=== PATIENT | male | born 1985 | race Caucasian/White ===

== ENCOUNTER 2024-01-17 15:58 | Emergency (ER) | payer OTHER, SELFPAY ==
[2024-01-17 16:07] VITALS: BP 115/80; PULSE 90; RESP 18; TEMP 36.5; O2SAT 98; BMI 32.8
--- NOTE | 2024-01-17 16:17 | CRLHL7_ITS ---
For Patients: As a result of the Century Cures Act, medical imaging exams and procedure reports are released immediately into your electronic medical record. You may view this report before your referring provider. If you have questions, please contact your health care provider. INDICATION: Calf pain. TECHNIQUE: Ultrasound venous duplex lower right extremity. Compression venous exam was performed using rowan-scale, color Doppler, and spectral Doppler analysis. COMPARISON: None. FINDINGS: Patent right common femoral vein, superficial femoral vein, popliteal vein, and visualized calf veins. IMPRESSION: No deep venous thrombosis identified in the right lower extremity. Dictated by Ricki Yancey MD @ 01/17/2024 6:44:49 PM (Electronically Signed)
--- NOTE | 2024-01-17 16:18 | ED_ITS ---
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 He was awakened in the middle the night with a severe cramp in his calf, he jumped out of bed, stretched out in in improved but has not gone. Continues to have localized pain in the calf. He talked to his oncologist who recommended that he be seen to rule out blood clot based on his past medical history and medications. No family history of DVT or PE, no personal history of DVT or PE. He does not smoke. No other pertinent medical history. Related Data Home Medications ?Medication ?Instructions ?Recorded ?Confirmed Fish Oil 01/17/24 allopurinol 01/17/24 aspirin 01/17/24 imatinib 01/17/24 omeprazole 01/17/24 rosuvastatin 01/17/24 Allergies Allergy/AdvReac Type Severity Reaction Status Date / Time No Known Drug Allergies Allergy Verified 01/17/24 16:10 [facility] Social History Smoking Status: Unknown if ever smoked Exam Narrative: Exam Narrative: Vital signs reviewed In general, alert, well-appearing male. Breathing easily. Extremities: The right calf is normal in appearance. There is no erythema, warmth, there is a focal area of tenderness in the mid calf. No edema. No rash. Const: Vital Signs, click to edit/add: Vital Signs - 24 hr 01/17/24 16:07 Temperature 97.7 F Pulse Rate [Pulse Oximeter] 90 Respiratory Rate 18 Blood Pressure [Ri ght Upper Arm] 115/80 Pulse Oximetry 98 Oxygen Delivery Me thod Room Air Documenting provider has reviewed patient's vital signs: yes Course Course ED Course: Venous Doppler of right leg was obtained. Radiology reads this as follows:FINDINGS: Patent right common femoral vein, superficial femoral vein, popliteal vein, and visualized calf veins. IMPRESSION: No deep venous thrombosis identified in the right lower extremity. Reviewed this with the patient and his girlfriend. Overall, story sounds more suggestive of a muscle spasm, no evidence of DVT on ultrasound. I think this can be treated expectantly, ibuprofen and/or Tylenol, ice, anticipate gradual improvement. See primary care if not improving as expected. Return any time for acute worsening, severe pain, increased swelling, fevers etcetera. Vital Signs Vital signs: Initial Vital Signs Temperature 97.7 F 01/17/24 16:07 Temperature Source Temporal Artery Scan 01/17/24 16:07 Pulse Rate 90 01/17/24 16:07 Respiratory Rate 18 01/17/24 16:07 Blood Pressure 115/80 01/17/24 16:07 Blood Pressure Mean 91 01/17/24 16:07 Blood Pressure Position Sitting 01/17/24 16:07 Pulse Oximetry 98 01/17/24 16:07 Oxygen Delivery Method Room Air 01/17/24 16:07 Vital Signs Temperature 97.7 F 01/17/24 16:07 Pulse Rate 90 01/17/24 16:07 Respiratory Rate 18 01/17/24 16:07 Blood Pressure 115/80 01/17/24 16:07 Pulse Oximetry 98 01/17/24 16:07 Oxygen Delivery Method Room Air 01/17/24 16:07 Temperature 97.7 F 01/17/24 16:07 Pulse Rate 90 01/17/24 16:07 Respiratory Rate 18 01/17/24 16:07 Blood Pressure 115/80 01/17/24 16:07 Pulse Oximetry 98 01/17/24 16:07 Oxygen Delivery Method Room Air 01/17/24 16:07 Discharge Plan Discharge Clinical Impression: Muscle spasm of right calf Patient Disposition: Home, Self-Care Condition: Stable Additional Instructions: Ibuprofen and/or Tylenol, ice as needed. Return for worsening or severe pain, redness, swelling, or other significant changes. Discuss further with your oncology team as needed. Prescriptions: No Action imatinib allopurinol omeprazole aspirin Fish Oil rosuvastatin Follow Up/Referrals: Syed Young MD [Primary Care Provider] - Discharge Comment: Pt verbally d/c'd by Dr. Hurtado @ [phone].
== END 2024-01-17 17:00 | disposition home or self-care (01) ==
LOC: ED 16:28
PROVIDERS: Emergency Provider Emergency Medicine; PCP Family Medicine
DX: M62.838 Other muscle spasm (principal)
CPT/HCPCS: 93971; 99283; 99284

== ENCOUNTER 2025-03-27 23:26 | Emergency (ER) | payer OTHER, SELFPAY ==
--- OUTSIDE RECORDS SUMMARY | 2025-03-27 23:28 | XMS_ITS | Clinical Summary ---
Author Organization [facility] Address [address] [place] [address]. 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 Name Role Phone Clinic - [facility] Primary Care Provider Allergies No known active allergies Medications No known medications Active Problems Problem Noted Date Diagnosed Date Tobacco use disorder 11/15/2018 Immunizations Immunization Administration Dates Next Due MMR (MMRII) 08/18/1995 TD,PF 7+ (Tenivac) 10/26/2018 TDAP Vaccine (Adacel) 06/09/2008 Td (Adult), Adsorbed 08/18/1995 Social History Tobacco Use Types Packs/Day Years Used Date Smoking Tobacco: Every Day Cigarettes Smokeless Tobacco: Never Alcohol Use Standard Drinks/Week Comments Yes 0 (1 standard drink = 0.6 oz pur e alcohol) Sex and Gender Information Value Date Recorded Sex Assigned at Not on file Legal Sex Male 3:44 AM [employer]ENT[employer] Gender Identity Not on file Sexual Orientation Not on file Last Filed Vital Signs Vital Sign Reading Time Taken Comments Blood Pressure 122/78 11/04/2018 3:43 PM CDT Pulse 90 11/04/2018 3:43 PM CDT Temperature 36.9 C (98.4 F) 11/04/2018 3:43 PM CDT Respiratory Rate 12 10/26/2018 11:26 AM CDT Oxygen Saturation 97% 11/04/2018 3:43 PM CDT Inhaled Oxygen Concentration - - Weight 97.2 kg (214 lb 3.2 oz) 11/04/2018 3:43 P M CDT Height 180.3 cm (5' 11) 11/04/2018 3:43 PM CDT Body Mass Index 29.87 11/04/2018 3:43 PM CDT Plan of Treatment Not on file Insurance Binh GAXIOLA JAYLON [id number] [employer] [place] [id number] Care Teams Keyboarding Teacher Relationship Specialty Start Date End Date [facility] - [address] [id number] PCP - General 10/26/18
--- OUTSIDE RECORDS SUMMARY | 2025-03-27 23:28 | XMS_ITS | Clinical Summary ---
Author Organization [facility] Address [address] [place] [id number] Care Team Providers Care Manager Simulation Name Role Phone Syed Young MD Primary Care Provider Allergies No known active allergies Medications cholecalciferol (VITAMIN D) 1,000 unit capsule Take 2 capsules by mouth once daily. 0 07/12/19 20 Active aspirin (ECOTRIN) 81 mg enteric coated tablet Take 1 tablet by mouth once daily with a meal. 0 07/12/19 20 Active imatinib mesylate (IMATINIB ORAL) Take by mouth. Active albuterol HFA (PRO-AIR; VENTOLIN; PROVENTIL) 90 mcg/actuation inhalerIndication s:Subacute cough INHALE ONE PUFF BY MOUTH EVERY 4 HOURS NEEDED FOR SHORTNESS OF BREATH 6.7 g 6 06/28/19 25 Active docosahexaenoic acid/epa (FISH OIL ORAL) Take by mouth. Active omeprazole 20 mg Delayed-Release capsuleIndication s:Throat pain,Laryngophary ngeal reflux (LPR) Take 1 Capsule (20 mg) by mouth once daily before a meal. 90 Capsule 3 10/05/19 25 Active rosuvastatin (Crestor) 40 mg tabletIndications :Coronary artery calcification Take 1 Tablet (40 mg) by mouth once daily. 90 Tablet 3 10/05/19 25 Active icosapent ethyL (Vascepa) 1 gram capsuleIndication s:Coronary artery calcification Take 2 g by mouth two times daily with meals. 180 Capsule 3 10/18/19 25 Active fexofenadine-pseu doephedrine ER (Brooke-D 24 Hour) 180-240 mg tabletIndications :Environmental allergies Take 1 Tablet by mouth once daily if needed for Allergy Symptoms. 30 Tablet 5 01/31/20 25 Active fluticasone furoate-vilantero L (Breo Ellipta) 100-25 mcg/dose inhalation powderIndications :Asthma, unspecified asthma severity, unspecified whether complicated, unspecified whether persistent (HC) Inhale 1 Puff by mouth once daily. 60 Each 11 02/17/20 25 Active rx HYDROcodone-aceta minophen (ED DC MED) 5-325 mg tabletIndications :Rupture of left Achilles tendon, initial encounter Take 1 Tablet by mouth every 4 hours if needed for Pain. 4 Tablet 03/19/20 Active crutchIndications :Rupture of left Achilles tendon, initial encounter For home use. 2 Each 03/19/20 Active durable medical equipment (DME)Indications: Achilles tendon rupture, left, initial encounter 01EF-XL Airselect, Standard, XLarge 1 Each 03/22/20 Active durable medical equipment (DME)Indications: Achilles tendon rupture, left, initial encounter [phone] Achilles wedge 1 Each 03/22/20 Active oxyCODONE (ROXICODONE) 5 mg immediate release tabletIndications :Achilles tendon rupture, left, initial encounter Take 1 Tablet (5 mg) by mouth every 4 hours if needed for Pain. 20 Tablet 03/25/2025 12:57 PM OPERATIONS CONTROLLER 03/24/20 25 Active fluticasone furoate-vilantero L (Breo Ellipta) 100-25 mcg/dose inhalation powderIndications :Asthma, unspecified asthma severity, unspecified whether complicated, unspecified whether persistent (HC) INHALE ONE PUFF BY MOUTH EVERY DAY RINSE MOUTH AFTER USE 180 Each 11 10/05/19 25 025 Discontinu ed(Duplica te therapy (E-cancel not sent)) Active Problems Problem Noted Date Diagnosed Date CML (chronic myeloid leukemia) 11/10/2023 Asthma 11/10/2023 Hepatosplenomegaly 11/07/2023 Atherogenic dyslipidemia w very high Lpa - 98.9 (NL<30) 02/27/2019 Coronary artery calcification - Proximal LAD - a ge 34. 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 2) Right Thoracotomy. 3) Excision of Right chest wall mass with portion of ribs 2, [address] Rocha. Bone lesion 02/27/2019 Encounters Date Type Department Care Team Description 03/25/2025 12:47 PM OPERATIONS CONTROLLER Anesthesia Event [facility] [address] [place] [address] Michelle Roger CRNA 03/25/2025 12:35 PM OPERATIONS CONTROLLER - 03/25/2025 2:00 PM OPERATIONS CONTROLLER Surgery [facility] [address] [place] [address] Trey Man DPM REPAIR ACHILLES TENDON 03/25/2025 10:47 AM OPERATIONS CONTROLLER - 03/25/2025 4:54 PM OPERATIONS CONTROLLER Hospital Encounter [facility] [address] [place] [address] Trey Man DPM Achilles tendon rupture, left, initial encounter (Primary Dx) Discharge Disposition: Home Self Care 03/25/2025 Travel 03/22/2025 3:00 PM OPERATIONS CONTROLLER Office Visit [facility] [address] [place] [address] Celso Alvarez MD Pre-Op Exam (DOS 03/25/25 left achilles) 03/22/2025 11:15 AM OPERATIONS CONTROLLER Office Visit [facility] [place] [address] [address] Trey Man DPM Consult (Left achilles tendon injury) 03/22/2025 Travel 03/21/2025 Telephone [facility] [place] 35 [facility] [address] [place] [address] Trey Man DPM Appointment Request 03/19/2025 5:00 PM OPERATIONS CONTROLLER - 03/19/2025 7:24 PM OPERATIONS CONTROLLER Emergency [facility] [address] [place] [address] Navya Singh MD Rupture of left Achilles tendon, initial encounter (Primary Dx) Discharge Disposition: Home Self Care 03/19/2025 Travel 03/10/2025 3:00 PM OPERATIONS CONTROLLER Telemedicine [facility] [address] [facility] [address] [place] [address] Kim Reinoso NP Telehealth 03/09/2025 Travel 02/22/2025 3:10 PM CDT Office Visit [facility] [address] [place] [address] Syed Young MD Blood In Stool (Blood in stool for 1 month ) 02/22/2025 Travel 12/31/2024 Lab Requisition [facility] [address] [place] [address] Yesika Tapia MBBS 12/28/2024 5:05 PM CDT Office Visit [facility] [address] [place] [address] Breana Flores NP Throat Pain/problem; Eye Problem (left) 12/28/2024 Travel from Last 3 Months Immunizations Immunization Administration Dates Next Due COVID-19 vaccine (Omnicademy 30mcg/0.3mL) P F, MDV 09/12/2020,08/18/2020 DTaP 06/09/2008 MMR 08/18/1995 Td, Preservative Free (age >= 7 Years) 9 Tdap 06/09/2008 Family History Medical History Relation Name Comments Good Health Brother 2 Good Health Father Stroke Maternal Grandfather Cancer Maternal Grandmother Good Health Mother Unknown Paternal Grandfather Unknown Paternal Grandmother Relation Name Status Comments Brother 1 Alive Brother 2 Father Alive Maternal Grandfather Alive Maternal Grandmother ? cance r Mother Alive Paternal Grandfather Paternal Grandmother Social History Tobacco Use Types Packs/Day Years Used Date Smoking Tobacco: Former Cigarettes 1 19 Smokeless Tobacco: Never Tobacco Cessation:Counseling Given: Not Answered Comments:quit 11/2023 Alcohol Use Standard Drinks/Week Comments Not Currently 0 (1 standard drink = 0.6 oz pur e alcohol) PHQ-2 Answer Date Recorded PHQ-2 TOTAL SCORE 0 02/22/2025 Social Connections Answer Date Recorded Do you often feel lonely or isolated from those around you? 0 11/07/2023 Alcohol Use Answer Date Recorded How often do you have a drink containing alcohol ? 0 03/22/2025 Average Number of Drinks Not on file 025 How often do you have five or more drinks on one occasion? 0 03/22/2025 Financial Resource Strain Answer Date R ecorded Difficulty of Paying Living Expenses 3 10/27/2023 Difficulty of Paying Living Expenses Not on file 10/27/2023 Food Insecurity Answer Date Recorded Do you worry your food will run out before you are able to buy more? 1 11/07/2023 Transportation Needs Answer Date Record ed Does lack of transportation keep you from medica l appointments? 1 11/07/2023 Does lack of transportation keep you from work, meetings or getting things that you need? 1 11/07/2023 Housing Stability Answer Date Recorded What is your housing situation today? 1 11/07/2023 Interpersonal Safety Answer Date Record ed Are you being hit, kicked, p ushed or yelled at (see row info)? No 03/19/2025 Interpersonal Safety Abuse 12 - 18 Not on file 03/19/2025 Interpersonal Safety Ambulatory Vulnerability No t on file 03/19/2025 Utilities Answer Date Recorded Do you have trouble paying f or utilities (for example, heat, electricity, water, phone)? 1 11/07/2023 Sex and Gender Information Value Date Recorded Sex Assigned at Not on file Legal Sex Male 5:23 AM OPERATIONS CONTROLLER Gender Identity Not on file Sexual Orientation Not on file 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 Not on file Not on file Obstetrics History Last Filed Vital Signs Vital Sign Reading Time Taken Comments Blood Pressure 136/78 03/25/2025 4:30 PM OPERATIONS CONTROLLER Pulse 76 03/25/2025 4:30 PM OPERATIONS CONTROLLER Temperature 36 C (96.8 F) 03/25/2025 3:10 PM OPERATIONS CONTROLLER Respiratory Rate 16 03/25/2025 4:30 PM OPERATIONS CONTROLLER Oxygen Saturation 98% 03/25/2025 4:30 PM OPERATIONS CONTROLLER Inhaled Oxygen Concentration - - Weight 106.8 kg (235 lb 8 oz) 03/25/2025 11:13 A M OPERATIONS CONTROLLER Height 180.3 cm (5' 11) 03/25/2025 11:13 AM OPERATIONS CONTROLLER Body Mass Index 32.85 03/25/2025 11:13 AM OPERATIONS CONTROLLER Plan of Treatment Upcoming Encounters Date Type Department Care Team (Late st Contact Info) Description 04/05/2025 9:45 AM OPERATIONS CONTROLLER Office Visit [facility] [address] [phone] Trey Man DPM [address] [place] [address] 05/10/2025 8:45 AM OPERATIONS CONTROLLER Office Visit [facility] [address] [place] [address] Trey Man DPM [address] [place] [address] Health Maintenance Due Date Last Done Comments Hepatitis B series for 19+ ( 1 of 3 - 19+ 3-dose series) 01/15/2003 Pneumococcal series for age 6-49 (1 of 2 - PCV) 01/15/2003 HPV series for age 9-45 (1 - Risk 3-dose SCDM series) 01/15/2011 Influenza Vaccine (#1) 2025 BMI (ht and wt on same day) for age 18+ 10/04/2025 10/04/2024, 10/27/2023, 07/10/2022, Additional history exists Depression screening for age 12+ 02/22/2026 02/22/2025, 07/04/2021, 12/13/2019, Additional history exists Tetanus booster 10/26/2028 10/26/2018, 06/09/2008 Lipids for age 35-44 02/22/2030 02/22/2025, 01/06/2024, 10/27/2023, Additional history exists RSV vaccine for adults or (1 - 1-dose 75+ series) 01/15/2059 HIV for age 15-65 Completed 11/07/2023 Hepatitis C screening for ag e 18-79 Completed 11/08/2023 Medical Devices Implanted Type Area Collection Teller Device Identifier Shelf Expiration Date Model / Serial / Lot Implant System, Pars Achilles Mildsubstance Speedbridge With Jumpstart Dressing Implanted:Qty: 1 on 03/25/2025 by Trey Man DPM at [facility] Left: Ankle [employer] 10/02/2028 [id number] / / [id number] Procedures Procedure Name Priority Date/Time Associated Diagnosis Comments ENDOTRACHEAL TUBE Routine 03/25/2025 1:1 1 PM OPERATIONS CONTROLLER PERIPHERAL BLOCK Routine 03/25/2025 12:3 0 PM OPERATIONS CONTROLLER BEDSIDE US STUDY ARCHIVE Routine 03/25/2025 11:54 AM OPERATIONS CONTROLLER BEDSIDE US STUDY ARCHIVE Preop 03/25/2025 10:52 AM OPERATIONS CONTROLLER CBC WITH AUTO DIFFERENTIAL Routine 03/22/2025 12:27 PM OPERATIONS CONTROLLER Preop examination COMP METABOLIC PANEL Routine 03/22/2025 12:27 PM OPERATIONS CONTROLLER Preop examination CBC WITH AUTO DIFFERENTIAL Routine 03/22/2025 12:27 PM OPERATIONS CONTROLLER Preop examination XR ANKLE 3 VIEWS LEFT STAT 03/19/2025 5:33 PM OPERATIONS CONTROLLER LIPID PANEL W REFLEX MEASURED LDL Routine 02/22/2025 3:52 PM CDT Coronary artery calcification - Proximal LAD - age 34. RED CELL MORPHOLOGY Routine 12/31/2024 3 :10 PM CDT Chronic myeloid leukemia, BCR/ABL-positive, not having achieved remission (HC) Malignant neoplasm of bone and articular cartilage, unspecified (HC) PLATELET ESTIMATE Routine 12/31/2024 3:1 0 PM CDT Chronic myeloid leukemia, BCR/ABL-positive, not having achieved remission (HC) Malignant neoplasm of bone and articular cartilage, unspecified (HC) MANUAL DIFFERENTIAL Routine 12/31/2024 3 :10 PM CDT Chronic myeloid leukemia, BCR/ABL-positive, not having achieved remission (HC) Malignant neoplasm of bone and articular cartilage, unspecified (HC) CBC WITH AUTO DIFFERENTIAL Routine 12/31/2024 3:10 PM CDT Chronic myeloid leukemia, BCR/ABL-positive, not having achieved remission (HC) Malignant neoplasm of bone and articular cartilage, unspecified (HC) BCR ABL1 CML/ALL PCR QUANT Routine 12/31/2024 3:10 PM CDT Chronic myeloid leukemia, BCR/ABL-positive, not having achieved remission (HC) Malignant neoplasm of bone and articular cartilage, unspecified (HC) COMP METABOLIC PANEL Routine 12/31/2024 3:10 PM CDT Chronic myeloid leukemia, BCR/ABL-positive, not having achieved remission (HC) Malignant neoplasm of bone and articular cartilage, unspecified (HC) CBC WITH AUTO DIFFERENTIAL Routine 12/31/2024 3:10 PM CDT Chronic myeloid leukemia, BCR/ABL-positive, not having achieved remission (HC) Malignant neoplasm of bone and articular cartilage, unspecified (HC) STREP A PCR STAT 12/28/2024 5:31 PM CDT Sore throat COVID-19 MOLECULAR Routine 12/28/2024 5: 31 PM CDT Sore throat Sinus congestion THROAT RAPID STREP A WITH REFLEX STAT 12/28/2024 5:31 PM CDT Sore throat ANTI HCV Early AM 11/08/2023 7:44 AM CDT ANTI HIV 1/2 Today 11/07/2023 10:27 PM CDT from Last 3 Months or Most Recently Relevant to Health Maintenance Results * ETT (03/25/2025 1:11 PM OPERATIONS CONTROLLER) Narrative Reema Yanez CRNA Student - 03/25/2025 1:11 PM OPERATIONS CONTROLLER Reema Yanez CRNA Student 03/25/2025 1:21 PM Procedure: ETT Patient location during procedure: OR ETT Properties Mask Ventilation: easy and oral airway (2 handed, bearded) Type: straight Location: oral Cuffed: yes Tube Size: 7.5 mm Stylet: yes Laryngoscope Blade: Walsh Blade Size: 2 Cormack-Lehane Grade View: 1 Insertion Attempts: 1 Placement Verification: auscultation, end tidal CO2 and symmetrical chest wall movement Assessment: atraumatic, dentition unchanged and pharynx clear Secured at: 23 Measured From: teeth Difficulty: 0 (not difficult) Michelle Roger MEDICAL LEGAL INVESTIGATOR ANESTHESIA PX NOTE ORDER ALISHA Edited Result - Final * Peripheral Block (03/25/2025 12:30 PM OPERATIONS CONTROLLER) Reema Harmon CRNA Student - 03/25/2025 12:30 PM OPERATIONS CONTROLLER Reema Yanez CRNA Student 03/25/2025 1:21 PM Peripheral Block Patient location during procedure: pre-op Start time: 03/25/2025 12:12 PM End time: 03/25/2025 12:25 PM Reason for block: at surgeon's request for post-op pain PreProcedure Checklist Completed: patient identified, site marked, risks and benefits discussed, surgical consent, timeout performed and hand hygiene performed. Peripheral Block Patient position: supine Prep: chloraprep Patient monitoring: continuous pulse oximetry, ECG and blood pressure Neuro Status: alert and mild sedation Block type: popliteal sciatic and lower extremity , regional analgesia techniques Lower extremity block type: popliteal sciatic Laterality: left Injection technique: single injection Needle Needle type: Stimuplex Needle gauge: 20 G Needle length: 4 in Unilateral needle localization (ultrasound): live ultrasound guidance, needle and nerve visualized, permanent images obtained, local anesthetic visualized surrounding nerve and nerve appears normal. Unilateral needle Localization (plane blocks): needle and expected nerve location visualized and local anesthetic visualized in anatomic plane Needle Localization (other): nerve stimulator. Events: no complications. us Michelle Roger MEDICAL LEGAL INVESTIGATOR ANESTHESIA PX NOTE ORDER ALISHA Edited Result - Final * (ABNORMAL) CBC WITH AUTO DIFFERENTIAL (03/22/2025 12:27 PM OPERATIONS CONTROLLER) Only the most recent of2 resultswithin the time period is included. WHITE BLOOD CELL COUNT 8.9 3.8 - 10.8 Thousand/u L 03/23/2025 3:43 AM OPERATIONS CONTROLLER [facility] RED BLOOD CELL COUNT 4.49 4.20 - 5.80 Million/uL 03/23/2025 3:43 AM OPERATIONS CONTROLLER [facility] HEMOGLOBIN 14.3 13.2 - 17.1 g/dL 03/23/2025 3:43 AM OPERATIONS CONTROLLER [facility] HEMATOCRIT 42.1 38.5 - 50.0 % 03/23/2025 3:43 AM OPERATIONS CONTROLLER [facility] MCV 93.8 80.0 - 100.0 fL 03/23/2025 3:43 AM OPERATIONS CONTROLLER [facility] MCH 31.8 27.0 - 33.0 pg 03/23/2025 3:43 AM OPERATIONS CONTROLLER [facility] MCHC 34.0 32.0 - 36.0 g/dL 03/23/2025 3:43 AM OPERATIONS CONTROLLER [facility] Comment: For adults, a slight decrease in the calculated MCHC value (in the range of 30 to 32 g/dL) is most likely not clinically significant; however, it should be interpreted with caution in correlation with other red cell parameters and the patient's clinical condition. RDW 12.5 11.0 - 15.0 % 03/23/2025 3:43 AM OPERATIONS CONTROLLER [facility] PLATELET COUNT 231 140 - 400 Thousand/u L 03/23/2025 3:43 AM OPERATIONS CONTROLLER [facility] MPV 9.9 7.5 - 12.5 fL 03/23/2025 3:43 AM OPERATIONS CONTROLLER [facility] NEUTROPHILS 60.9 % 03/23/2025 3:43 AM OPERATIONS CONTROLLER [facility] LYMPHOCYTES 25.6 % 03/23/2025 3:43 AM OPERATIONS CONTROLLER [facility] MONOCYTES 6.8 % 03/23/2025 3:43 AM OPERATIONS CONTROLLER [facility] EOSINOPHILS 6.2 % 03/23/2025 3:43 AM OPERATIONS CONTROLLER [facility] BASOPHILS 0.5 % 03/23/2025 3:43 AM OPERATIONS CONTROLLER [facility] ABSOLUTE NEUTROPHILS 5420 1500 - 7800 cells/uL 03/23/2025 3:43 AM OPERATIONS CONTROLLER [facility] ABSOLUTE LYMPHOCYTES 2278 850 - 3900 cells/uL 03/23/2025 3:43 AM OPERATIONS CONTROLLER [facility] ABSOLUTE MONOCYTES 605 200 - 950 cells/uL 03/23/2025 3:43 AM OPERATIONS CONTROLLER [facility] ABSOLUTE EOSINOPHILS 552(H) 15 - 500 cells/uL 03/23/2025 3:43 AM OPERATIONS CONTROLLER [facility] ABSOLUTE BASOPHILS 45 0 - 200 cells/uL 03/23/2025 3:43 AM OPERATIONS CONTROLLER [facility] Blood BLOOD SPECIMEN / Unknown [facility] / Unknown 03/22/2025 12:27 PM OPERATIONS CONTROLLER 03/22/2025 12:27 PM OPERATIONS CONTROLLER us Celso Alvarez MD HEMATOLOGY Final Res ult [facility] [address] [place] [address], * (ABNORMAL) COMP METABOLIC PANEL (03/22/2025 12:27 PM OPERATIONS CONTROLLER) Only the most recent of2 resultswithin the time period is included. SODIUM 140 135 - 146 mmol/L 03/23/2025 6:16 AM OPERATIONS CONTROLLER [facility] POTASSIUM 4.3 3.5 - 5.3 mmol/L 03/23/2025 6:16 AM OPERATIONS CONTROLLER [facility] CHLORIDE 104 98 - 110 mmol/L 03/23/2025 6:16 AM OPERATIONS CONTROLLER [facility] CARBON DIOXIDE 26 20 - 32 mmol/L 03/23/2025 6:16 AM OPERATIONS CONTROLLER [facility] GLUCOSE 101(H) 65 - 99 mg/dL 03/23/2025 6:16 AM OPERATIONS CONTROLLER [facility] Comment: Fasting reference interval For someone without known diabetes, a glucose value between 100 and 125 mg/dL is consistent with prediabetes and should be confirmed with a follow-up test. CALCIUM 9.2 8.6 - 10.3 mg/dL 03/23/2025 6:16 AM OPERATIONS CONTROLLER [facility] CREATININE 1.31(H) 0.60 - 1.29 mg/dL 03/23/2025 6:16 AM OPERATIONS CONTROLLER [facility] BUN/CREATININE RATIO 10 6 - 22 (calc) 03/23/2025 6:16 AM OPERATIONS CONTROLLER [facility] EGFR 70 > OR = 60 mL/min/1. 73m2 03/23/2025 6:16 AM OPERATIONS CONTROLLER [facility] ALBUMIN 4.6 3.6 - 5.1 g/dL 03/23/2025 6:16 AM OPERATIONS CONTROLLER [facility] PROTEIN, TOTAL 7.1 6.1 - 8.1 g/dL 03/23/2025 6:16 AM OPERATIONS CONTROLLER [facility] BILIRUBIN, TOTAL 0.6 0.2 - 1.2 mg/dL 03/23/2025 6:16 AM OPERATIONS CONTROLLER [facility] ALKALINE PHOSPHATASE 64 36 - 130 U/L 03/23/2025 6:16 AM OPERATIONS CONTROLLER [facility] ALT 32 9 - 46 U/L 03/23/2025 6:16 AM OPERATIONS CONTROLLER [facility] AST 29 10 - 40 U/L 03/23/2025 6:16 AM OPERATIONS CONTROLLER [facility] UREA NITROGEN (BUN) 13 7 - 25 mg/dL 03/23/2025 6:16 AM OPERATIONS CONTROLLER [facility] GLOBULIN 2.5 1.9 - 3.7 g/dL (calc) 03/23/2025 6:16 AM OPERATIONS CONTROLLER [facility] ALBUMIN/GLOBULIN RATIO 1.8 1.0 - 2.5 (calc) 03/23/2025 6:16 AM OPERATIONS CONTROLLER [facility] Blood BLOOD SPECIMEN / Unknown [facility] / Unknown 03/22/2025 12:27 PM OPERATIONS CONTROLLER 03/22/2025 12:27 PM OPERATIONS CONTROLLER us Celso Alvarez MD CHEMISTRY Final Res ult [facility] [address] [place] [address], * XR ANKLE 3 VIEWS LEFT (03/19/2025 5:33 PM OPERATIONS CONTROLLER) Anatomical Region Laterality Modality ANKLES, ANKLE L Digital Radiogra phy 03/19/2025 5:45 PM OPERATIONS CONTROLLER Impressions 03/19/2025 5:45 PM OPERATIONS CONTROLLER 1. On the lateral view, there is a linear lucency overlying either the medial or lateral malleoli. Correlation with physical exam for focal tenderness in this region is recommended to exclude an acute fracture. Dictated by Mckay Ca MD @ 03/19/2025 5:45:06 PM Dictated by: Mckay Ca MD @ 03/19/2025 17:45:10 (Electronically Signed) Narrative 03/19/2025 5:45 PM OPERATIONS CONTROLLER For Patients: As a result of the Cures Act, medical imaging exams and procedure reports are released immediately into your electronic medical record. You may view this report before your referring provider. If you have questions, please contact your health care provider. INDICATION: Ankle Pain, Trauma TECHNIQUE: Ankle radiograph 3 views left COMPARISON: None FINDINGS: Bone: On the lateral view, there is a linear lucency overlying either the medial or lateral malleoli. There is a tiny plantar calcaneal spur and a tiny posterosuperior enthesophyte present. Joint: The ankle mortise joint and the visualized hindfoot joints are unremarkable in appearance. No significant ankle effusion is seen. Soft tissue: The Kager fat pad and the Achilles` tendon are normal in appearance. No radiopaque foreign bodies are seen. Procedure Note Mckay Ca MD - 03/19/2025 For Patients: As a result of the Cures Act, medical imagingexams and procedure reports are released immediately into your electronicmedical record. You may view this report before your referring provider.If you have questions, please contact your health care provider. INDICATION: Ankle Pain, Trauma TECHNIQUE: Ankle radiograph 3 views left COMPARISON: None FINDINGS: Bone: On the lateral view, there is a linear lucency overlying either themedial or lateral malleoli. There is a tiny plantar calcaneal spur and atiny posterosuperior enthesophyte present. Joint: The ankle mortise joint and the visualized hindfoot joints areunremarkable in appearance. No significant ankle effusion is seen. Soft tissue: The Kager fat pad and the Achilles` tendon are normal inappearance. No radiopaque foreign bodies are seen. IMPRESSION: 1. On the lateral view, there is a linear lucency overlying either themedial or lateral malleoli. Correlation with physical exam for focaltenderness in this region is recommended to exclude an acute fracture. Dictated by Mckay Ca MD @ 03/19/2025 5:45:06 PM Dictated by: Mckay Ca MD @ 03/19/2025 17:45:10 (Electronically Signed) us Navya Singh MD GENERAL IMAGING Final Result * LIPID PANEL W REFLEX MEASURED LDL (02/22/2025 3:52 PM CDT) CHOLESTEROL, TOTAL 91 <200 mg/dL 02/23/2025 3:33 AM CDT [facility] TRIGLYCERIDES 57 <150 mg/dL 02/23/2025 3:33 AM CDT [facility] HDL CHOLESTEROL 40 > OR = 40 mg/dL 02/23/2025 3:33 AM CDT [facility] NON HDL CHOLESTEROL 51 <130 mg/dL (calc) 02/23/2025 3:33 AM CDT [facility] Comment: For patients with diabetes plus 1 major ASCVD risk factor, treating to a non-HDL-C goal of <100 mg/dL (LDL-C of <70 mg/dL) is considered a therapeutic option. CHOL/HDLC RATIO 2.3 <5.0 (calc) 02/23/2025 3:33 AM CDT [facility] LDL-CHOLESTEROL 38 mg/dL (calc) 02/23/2025 3:33 AM CDT [facility] Comment: Reference range: <100 Desirable range <100 mg/dL for primary prevention; <70 mg/dL for patients with CHD or diabetic patients with > or = 2 CHD risk factors. LDL-C is now calculated using the Kb-Wally calculation, which is a validated novel method providing better accuracy than the Friedewald equation in the estimation of LDL-C. Kb SS et al. ELAN. 2013;310(19): 7259-9638 (http://education.SKURA.CloudCase/faq/DMN135) Blood BLOOD SPECIMEN / Unknown [facility] / Unknown 02/22/2025 3:52 PM CDT 02/22/2025 3:52 PM CDT us Syed Young MD CHEMISTRY Final Resul t [employer] [facility] [place] [address], * (ABNORMAL) BCR ABL1 CML/ALL PCR QUANT (12/31/2024 3:10 PM CDT) [facility] BCR-ABL1, CML/ALL, PCR, Quant Note(A) 01/07/2025 2:09 PM CDT [facility] ([facility]) Comment: TESTS RESULT FLAG UNITS REF RANGE LAB e13a2 (b2a2) ca... Note [A] % 01 <0.0032 e14a2 (b3a2) ca... 0.0232 % 01 e1a2 transcript Note % 01 <0.0032 Interpretation: Positive [A] 01 POSITIVE for the BCR-ABL1 e14a2 (b3a2, p210) fusion transcript. Director Review Note 01 Technical Component performed at [facility] RT Professional Component performed by: Saba Ta, PhD, FACMG Director, Molecular Oncology [facility] [place] [id number], [address] [address] Background 01 This assay can detect three different types of BCR-ABL1 fusion transcripts associated with CML, ALL, and AML: e13a2 (previously b2a2) and e14a2 (previously b3a2) (major breakpoint, p210), as well as e1a2 (minor breakpoint, p190). The e13a2 and e14a2 transcript values are titrated to the current International Scale (IS). The standardized baseline is 100% BCR-ABL1 (IS) and major molecular response (MMR) is equivalent to 0.1% BCR-ABL1 (IS) corresponding to a 3-log reduction. Results should be correlated with appropriate clinical and laboratory information as indicated. Methodology 02 Total RNA is isolated from the sample and subject to a real-time, reverse transcriptase polymerase chain reaction (RT-PCR). The PCR primers and probes are specific for BCR-ABL1 e13a2, e14a2 and e1a2 fusion transcripts. The ABL1 transcript is amplified as the control for cDNA quantity and quality. Serial dilutions of a validated positive control RNA with known t(9;22) BCR-ABL1 are used as reference for quantification of BCR-ABL1 relative to ABL1. The numeric BCR-ABL1 level is reported as % BCR-ABL1/ABL1 and the detection sensitivity is 4.5 log below the standard baseline (<0.0032%). This test was developed and its performance characteristics determined by [employer]. It has not been cleared or approved by the Food and Drug Administration. References 02 1) Sincere Dan. Molecular monitoring of chronic myeloid leukemia. Semin Hematol. 2003 Apr; 40(2 Suppl 2):62-68. 2) NCCN Clinical Practice Guidelines in Oncology Chronic Myeloid Leukemia Version 1.2024 - December 11, 2023 3) Juan BARTLETT, Sary P, Sanjay P, et al. Establishment of the of the first World Health Organization International Genetic Reference Panel for quantitation of BCR-ABL mRNA. Blood. 2010 25; 116(22):l514-378. PDF 02 FLAG LEGEND: L-Low Normal,H-High Normal,LL-Alert Low,HH-Alert High <-Panic Low,>-Panic High,A-Abnormal,AA-Critical Abnormal Performed at: 01 SIN [facility] [place] [address] [facility], [place] [address] Yoel Desouza Formerly [facility], 02 [address] [facility] [place] [address], [facility] [place] [address] Yoel Desouza Formerly [facility], Other BLOOD SPECIMEN / Unknown Butterfly / Unknown 12/31/2024 3:10 PM CDT 12/31/2024 3:19 PM CDT Narrative LAB ESOTERIC TESTING ([facility]) - 01/07/2025 2:09 PM CDT Performed at: 01 - [facility] [address] [place], [place] [id number] Advanced Practice Rn: Yoel Desouza Formerly [facility], Phone: [phone] Yesika STEVENS SEND OUTS Final Result ESOTERIC TESTING ([facility]) [address] [place] [address], * RED CELL MORPHOLOGY (12/31/2024 3:10 PM CDT) RBC COMMENT RBC morphology appears normal RBC morphology appears normal, RBC morphology within normal limits for newborns. 12/31/2024 4:07 PM CDT [facility] Blood BLOOD SPECIMEN / Unknown Butterfly / Unknown 12/31/2024 3:10 PM CDT 12/31/2024 3:19 PM CDT Yesika STEVENS HEMATOLOGY Final Result [facility] [address] [place] [address] * PLATELET ESTIMATE (12/31/2024 3:10 PM CDT) PLATELET ESTIMATE Adequate Adequate, No estimate 12/31/2024 4:07 PM CDT [facility] Blood BLOOD SPECIMEN / Unknown Butterfly / Unknown 12/31/2024 3:10 PM CDT 12/31/2024 3:19 PM CDT Yesika STEVENS HEMATOLOGY Final Result [facility] [address] [place] [address] * (ABNORMAL) MANUAL DIFFERENTIAL (12/31/2024 3:10 PM CDT) [facility] % NEUTROPHILS 41.0 % 12/31/2024 4:07 PM CDT [facility] % LYMPHOCYTES 36.0 % 12/31/2024 4:07 PM CDT [facility] % MONOCYTES 9.0 % 12/31/2024 4:07 PM CDT [facility] % EOSINOPHILS 12.0 % 12/31/2024 4:07 PM CDT [facility] % BASOPHILS 2.0 % 12/31/2024 4:07 PM CDT [facility] NEUTROPHILS ABSOLUTE 2.7 1.7 - 7.0 thou/cu mm 12/31/2024 4:07 PM CDT [facility] LYMPHOCYTES ABSOLUTE 2.4 0.9 - 2.9 thou/cu mm 12/31/2024 4:07 PM CDT [facility] MONOCYTES ABSOLUTE 0.6 <0.9 thou/cu mm 12/31/2024 4:07 PM CDT [facility] EOSINOPHILS ABSOLUTE 0.8(H) <0.5 thou/cu mm 12/31/2024 4:07 PM CDT [facility] BASOPHILS ABSOLUTE 0.1 <0.3 thou/cu mm 12/31/2024 4:07 PM CDT [facility] Blood BLOOD SPECIMEN / Unknown Butterfly / Unknown 12/31/2024 3:10 PM CDT 12/31/2024 3:19 PM CDT Yesika STEVENS HEMATOLOGY Final Result [facility] [address] [place] [address] * COVID-19 MOLECULAR (12/28/2024 5:31 PM CDT) [facility] COVID 19 [place]INA MOLECULAR Negative Negative 12/29/2024 1:24 AM CDT [facility] 12/29/2024 1:24 AM CDT [facility] Comment:Specimen submitted t o [facility] for testing. Other SPECIMEN FROM NASAL FOSSAE / Unknown Non-Blood / Unknown 12/28/2024 5:31 PM CDT 12/28/2024 5:43 PM CDT Narrative [facility] - 12/29/2024 1:24 AM CDT All PCR tests are subject to false negative result due to variability in viral load and collection technique. A negative result does not rule out a SARS-CoV-2 infection. Clinical correlation required. us Tracy Quan NP MICROBIOLOGY Final Result Performing Organization Address City/[facility]/ZIP Co de Phone Number [facility] [address] [address], [place] * STREP A PCR (12/28/2024 5:31 PM CDT) GROUP A STREP Negative 12/29/2024 4:27 PM CDT [facility] Throat SPECIMEN FROM THROAT / Unknown Non-Blood / Unknown 12/28/2024 5:31 PM CDT 12/28/2024 5:55 PM CDT us Tracy Quan NP MICROBIOLOGY Final Result Performing Organization Address City/[facility]/ZIP Co de Phone Number [facility] [address] [address], [place] * THROAT RAPID STREP A WITH REFLEX (12/28/2024 5:31 PM CDT) STREP A ANTIGEN Negative 12/28/2024 5:55 PM CDT [facility] Comment:PCR to follow. Throat SPECIMEN FROM THROAT / Unknown Non-Blood / Unknown 12/28/2024 5:31 PM CDT 12/28/2024 5:43 PM CDT us Tracy Quan NP MICROBIOLOGY Final Result Performing Organization Address [facility] Co de Phone Number [facility] [address] [place] [address] * Anti-hepatitis C AM (11/08/2023 7:44 AM CDT) HEPATITIS C ANTIBODY Non-Reacti ve Non-React eddie 11/08/2023 9:14 AM CDT [facility] Comment:Please note, per www .CDC.gov: If a patient is known to be at high risk of HCV infection, or is symptomatic, and the physician's suspicion of HCV infection is high, HCV RNA testing is often employed and is of diagnostic value, even after an initial negative anti-HCV test result. Blood BLOOD SPECIMEN / Unknown Venipuncture / Unknown 11/08/2023 7:44 AM CDT 11/08/2023 8:03 AM CDT us Luis F Duarte MD SEND OUTS Final Result Performing Organization Address [facility] Co de Phone Number [facility] [address] * HIV 1&2 TODAY (11/07/2023 10:27 PM CDT) Pathologist [facility] HIV-1/HIV-2 SCREEN Non-Reacti ve Non-Reacti ve 11/07/2023 11:16 PM CDT [facility] Comment:HIV-1 p24 and HIV-1/ HIV-2 Ab Not Detected. Blood BLOOD SPECIMEN / Unknown Butterfly / Unknown 11/07/2023 10:27 PM CDT 11/07/2023 10:32 PM CDT us Luis F Duarte MD SEND OUTS Final Result Performing Organization Address City/[facility]/ZIP Co de Phone Number [facility] [address] [place] [address], from Last 3 Months or Most Recently Relevant to Health Maintenance Insurance [facility] [address] [place] [id number] [place] [id number] [place] [phone] [employer] WORKERS COMP on file Advance Directives * Full Code (Latest Code Status on File) Date Activated Date Inactivated Comments 03/25/2025 10:52 AM 03/25/2025 7:00 PM Question Answer Comments Code Status Discussion: Reviewed Preferences * Full Code Date Activated Date Inactivated Comments 11/07/2023 1:20 AM 11/10/2023 4:55 PM Question Answer Comments Code Status Discussion: Reviewed Preferences * Full Code Date Activated Date Inactivated Comments 10/30/2015 10:35 AM 11/02/2015 2:45 PM * Full Code Date Activated Date Inactivated Comments 10/30/2015 5:30 AM 10/30/2015 10:35 AM Care Teams Manager Simulation Relationship Specialty Start Date End Date Syed Young MD [address] [place] [address] PCP - General Family Practice 11/03/15
[2025-03-27 23:32] VITALS: BP 141/90; PULSE 111; RESP 16; TEMP 36.6; O2SAT 98; BMI 32.1
[2025-03-28 00:32] LABS: Lactate* 1.0 mmol/L (0.5-1.9)
[2025-03-28 00:34] LABS: Hematocrit* 42.3 % (37.0-53.0); Hemoglobin* 14.6 gm/dL (13.5-17.5); Immature Granulocytes Pct Auto 0.7 %; Mean Corpuscular HGB Conc 35 gm/dL (32-36); Mean Corpuscular Hemoglobin 31 pg (26-34); Mean Corpuscular Volume 91 fL (80-100); RDW Coefficient of Variation % 12.6 % (11.5-15.5); Red Blood Count* 4.66 m/uL (4.30-5.90); White Blood Count* 11.60 K/uL (4.50-11.00)
[2025-03-28 00:36] LABS: Immature Granulocytes Abs Auto 0.10 K/uL (0.00-0.30); Lymphocytes Absolute Auto 2.70 K/uL (0.90-2.90); Slide Review Reflex No
[2025-03-28] MEDS: ACETAMINOPHEN 500 MG TABLET 1000 MG PO (00:36)
[2025-03-28 00:46] LABS: Chloride* 98 mmol/L (96-114)
[2025-03-28 00:47] LABS: Potassium* 3.9 mmol/L (3.6-5.1); Sodium* 136 mmol/L (135-149)
[2025-03-28 00:50] LABS: Anion Gap 13 mEq/L (7-15); Blood Urea Nitrogen* 20 mg/dL (5-24); Calcium* 9.3 mg/dL (8.4-10.6); Carbon Dioxide* 25 mmol/L (20-32); Creatinine* 1.1 mg/dL (0.5-1.5); Est. Creatinine Clearance* 94.13; Estimated Glomerular Filt Rate 86 ml/min; Glucose* 126 mg/dL (60-115)
--- NOTE | 2025-03-28 00:51 | ED.GENADULT ---
HPI - General Adult General Chief complaint: Extremity Pain/Injury, Lower Stated complaint: post op left foot pain Time Seen by Provider: 03/27/25 23:36 History of Present Illness HPI narrative: 40-year-old male presents to the ED with sweats, feeling flushed, severe pain in his recent postoperative left leg. No shortness of breath. No history of DVT or PE. Patient had an Achilles rupture of 2 weeks ago, underwent surgical repair 2 and half days ago with Dr. Ryley lazo in [place]. No complications. Sounds like patient had a nerve block, started wearing off Friday morning as would be expected. He has been taking oxycodone for the last 2 days. Feels like it makes him feel lousy but it unfortunately does not seem to be controlling the pain in his left leg. For the last several hours he has felt like his toes were extremely cold despite the fact that they are warm to the touch. They feel tingly with occasional shooting pain throughout the foot and lateral leg. There is of course a large cast that prevents him from looking at the surgical site. He is not having any seepage through the bandages. No true fever. 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 No vomiting or major GI changes. No cardiac symptoms. No other localizing symptoms of infection. No dysuria. ROS is otherwise benign times 12 systems. His long-term problems mainly just the CML. Home medications are reviewed. Other than his immune modulator also takes allopurinol, omeprazole and rosuvastatin. No known drug allergies. Related Data Home Medications ?Medication ?Instructions ?Recorded ?Confirmed Fish Oil 01/17/24 allopurinol 01/17/24 aspirin 01/17/24 imatinib 01/17/24 omeprazole 01/17/24 rosuvastatin 01/17/24 Allergies Allergy/AdvReac Type Severity Reaction Status Date / Time No Known Drug Allergies Allergy Verified 03/27/25 23:36 PFSH PFS Social History Smoking Status: Unknown if ever smoked Exam Const: Vital Signs, click to edit/add: Vital Signs - 24 hr 03/27/25 23:32 Temperature 97.8 F Pulse Rate [Right Pulse Oximeter] 111 H Respiratory Rate 16 Blood Pressure [Ri ght Upper Arm] 141/90 H Pulse Oximetry 98 Oxygen Delivery Me thod Room Air Documenting provider has reviewed patient's vital signs: yes Common normals: no apparent distress General appearance: cooperative and well kempt Other: Anxious but redirectable. Appears well nourished, well hydrated. HENMT: Common normals: normocephalic and moist oral mucous membranes Head and scalp: normocephalic Eye: Common normals: conjunctivae normal General eye: normal appearance of both eyes Conjunctiva: conjunctiva(e) normal Neck & C-Spine: Common normals: full ROM General: normal visual inspection Resp: Common normals: normal respiratory effort and clear to auscultation bilaterally Effort & inspection: able to speak in complete sentences Auscultation: clear to auscultation bilaterally Cardio: Common normals: regular rate, regular rhythm, S1 normal heart sound, S2 normal heart sound and no murmurs Rate: regular rate Rhythm: regular rhythm Heart sounds: S1 normal and S2 normal Extremity: Other: Due to concern for compartment syndrome, I did carefully and personally undo all of the layers of the Wally wrap, padding then very carefully removed the plaster cast, ensuring that I had his leg propped in a way that there would not be any movement of his recent postoperative Achilles tendon. With the help of the nurse, we do elevate the leg so that I can examine the operative site. There is a vertical incision running along the Achilles tendon as expected. It looks great. There is no redness, no drainage even has very minimal swelling. Even with just on wrapping and loosening the leg, patient had marked improvement in his pain and neurological symptoms. The toes were warm prior to doing this, I do not think there is vascular compromise. The cast was cut away along the head of the fibula, but I think he was still having some nerve entrapment there. Excellent capillary refill in all of the toes, they are warm to the touch. Remainder of the foot and lower leg all appear normal. Did not perform any range of motion on the heel or ankle due to postoperative phase. Calves are without palpable cords or significant swelling. Psych: Common normals: speech normal Appearance: well kempt Attitude: engaged Activity/motor behavior: appropriate eye contact Speech: normal speech Insight: insight good Judgement: judgment good Skin: Narrative: Minimal bruising around surgical site, no redness, drainage or other abnormalities. Course Course ED Course: 40-year-old male 2 days postop from Achilles tendon repair presenting with severe pain in left lower extremity with sweats and flushed feeling. I had some initial concerns for compartment syndrome even though his toes felt pretty warm. Counseled patient that we have to carefully remove the cast and padding to examine everything. This was done. There were certainly no signs of compartment syndrome. Patient had marked improvement of his pain with just removing the cast. I carefully double-checked the incision and remainder of the foot and ankle and these look great. I think he was likely does having some nerve compression from the swelling and the cast. I then painstakingly trimmed away the extra padding from the plaster so that we could reuse it, reapplied fresh ABD, cast padding, re-applying the existing plaster, another layer of cast pad and then the Wally wraps in a similar fashion to postoperative appearance. Counseled patient that I think that what he is experiencing with the sweats and flushed feeling is likely side effect from the oxycodone. He cannot use ibuprofen due to his CML and treatment but he would be eligible to use Tylenol. He has not been taking advantage of this. We will give a 1000 of Tylenol here. Because of his CML, I think it is reasonable to double check for infection, a lactate level, flu swabs as I have seen several cases of influenza B already. Patient was agreeable to this. Was feeling quite a bit better with just adjustment of the cast. Reevaluation(s) Reevaluation #1: Update: Sensation has returned to normal in the patient's foot. Pain has markedly improved. I did double check anatomic alignment 1 more time, pulses and cap refill in the foot and it looks great. I reviewed all of his normal lab work with him. I think that he is likely having side effects from that oxycodone. We discussed management with Tylenol primarily, adding in the oxycodone only if needed. Alarm symptoms reviewed that would warrant ED re-evaluation. He will call his surgeon's office in the morning and let them know that we adjusted his cast but reapplied in a similar fashion, just loosening up some of the padding. All blood work was reassuring. Vital Signs Vital signs: Initial Vital Signs Temperature 97.8 F 03/27/25 23:32 Temperature Source Temporal Artery Scan 03/27/25 23:32 Pulse Rate 111 H 03/27/25 23:32 Pulse Rhythm Regular 03/27/25 23:32 Pulse Strength 3+ Normal 03/27/25 23:32 Respiratory Rate 16 03/27/25 23:32 Blood Pressure 141/90 H 03/27/25 23:32 Blood Pressure Mean 107 H 03/27/25 23:32 Blood Pressure Position Sitting 03/27/25 23:32 Pulse Oximetry 98 03/27/25 23:32 Oxygen Delivery Method Room Air 03/27/25 23:32 Vital Signs Temperature 97.8 F 03/27/25 23:32 Pulse Rate 111 H 03/27/25 23:32 Respiratory Rate 16 03/27/25 23:32 Blood Pressure 141/90 H 03/27/25 23:32 Pulse Oximetry 98 03/27/25 23:32 Oxygen Delivery Method Room Air 03/27/25 23:32 Temperature 97.8 F 03/27/25 23:32 Pulse Rate 111 H 03/27/25 23:32 Respiratory Rate 16 03/27/25 23:32 Blood Pressure 141/90 H 03/27/25 23:32 Pulse Oximetry 98 03/27/25 23:32 Oxygen Delivery Method Room Air 03/27/25 23:32 Medications Administered Medications: Generic Name Dose Route Start Last Admin Trade Name Tracy PRN Reason Stop Dose Admin Acetaminophen 1,000 mg 03/28/25 00:18 03/28/25 00:36 Acetaminophen 500 Mg Tablet PO 03/28/25 00:19 1,000 mg ONCE ONE Administration Medical Decision Making Lab Data Lab results reviewed: Yes I reviewed the patient's lab results Lab results narrative: All quite reassuring. Negative viral swabs, negative inflammatory markers. Normal renal function, no dehydration. Labs: Lab Results 03/28/25 03/28/25 Range/Units 00:28 00:32 WBC 11.60 H (4.50-11.00) K/uL RBC 4.66 (4.30-5.90) m/uL Hgb 14.6 (13.5-17.5) gm/dL Hct 42.3 (37.0-53.0) % MCV 91 (80-100) fL MCH 31 (26-34) pg MCHC 35 (32-36) gm/dL RDW Coeff of Chaka 12.6 (11.5-15.5) % Plt Count 204 (140-440) K/uL Neut % (Auto) 64.4 (42.0-72.0) % Lymph % (Auto) 22.9 (20-44) % [place]oc[place]ontas % (Auto) 8.3 (0.0-11.0) % Eos % (Auto) 3.5 (0.0-7.0) % Baso % (Auto) 0.2 (0.0-3.0) % Neut # (Auto) 7.50 H (1.7-7.0) K/uL Lymph # (Auto) 2.70 (0.90-2.90) K/uL [place]as # (Auto) 1.00 H (0.00-0.90) K/UL Eos # (Auto) 0.40 (0.00-0.50) K/uL Baso # (Auto) 0.00 (0.00-0.30) K/uL Abs Immat Gran (auto) 0.10 (0.00-0.30) K/uL Imm/Tot Granulo (auto) 0.7 % Sodium 136 (135-149) mmol/L Potassium 3.9 (3.6-5.1) mmol/L Chloride 98 (96-114) mmol/L Carbon Dioxide 25 (20-32) mmol/L Anion Gap 13 (7-15) mEq/L BUN 20 (5-24) mg/dL Creatinine 1.1 (0.5-1.5) mg/dL Estimated Creat Clear 94.13 Estimated GFR 86 ml/min Glucose 126 H (60-115) mg/dL Lactate 1.0 (0.5-1.9) mmol/L Calcium 9.3 (8.4-10.6) mg/dL C-Reactive Protein < 0.5 L (0.5-1.0) mg/dL SARS-CoV-2 (PCR) Negative SARS-CoV-2 (Negative) Influenza Type A (PCR) Negative PCR FLU A (Negative) Influenza Type B (PCR) Negative PCR FLU B (Negative) RSV (PCR) Negative PCR RSV (Negative) Discharge Plan Discharge Clinical Impression: Medication side effects, Cast discomfort Patient Disposition: Home w/ Parent or Adult Condition: Improved Additional Instructions: As we discussed, I think that with some typical postoperative swelling, things tightened up in your cast and began to press on that sensory nerve at the head of the fibula. I am glad that things feel so much better with just loosening up some of that pad. I did reapply fresh padding and the plaster that Dr. Tylor lazo intended, making sure to reposition the foot and ankle in a similar fashion. Please call their office in the morning and let them know that this was done in the ED. it does not look like there are any signs of blood clots, infection or other complication. The surgical incision looks great. I do think that you are having some side effects from the oxycodone. Try to wean off of it as soon as possible. Remember to take Tylenol 1000 mg every 6 hours as the foundation of your pain control, adding in the oxycodone only if he needed. Consider using half doses or as little as possible to make your pain bearable. All of your blood work today looks great. Keep your surgical team abreast of any changes. Activity Level: Activity as Tolerated Prescriptions: No Action imatinib allopurinol omeprazole aspirin Fish Oil rosuvastatin Follow Up/Referrals: Syed Young MD [Primary Care Provider, Family Practice] Stand Alone Forms: [email or web address] Info Instructions
--- OUTSIDE RECORDS SUMMARY | 2025-03-28 00:58 | XMS_ITS | Clinical Summary ---
Author Organization [facility] Address [address] [place] [address] Care Team Providers Care Personal Lines Agent Name Role Phone Syed Young MD Primary [...] (DME)Indications: Achilles tendon rupture, left, initial encounter [phone] Achilles wedge 1 Each 03/22/20 Active oxyCODONE (ROXICODONE) 5 mg immediate release tabletIndications :Achilles tendon rupture, left, initial encounter Take 1 Tablet (5 mg) by mouth every 4 hours if needed for Pain. 20 Tablet 03/25/2025 12:57 PM PRINTED CIRCUIT BOARD PREASSEMBLER 03/24/20 25 Active fluticasone furoate-vilantero L (Breo [...] Department Care Team Description 03/25/2025 12:47 PM PRINTED CIRCUIT BOARD PREASSEMBLER Anesthesia Event [facility] [address] [place] [address] Michelle Roger CRNA 03/25/2025 12:35 PM PRINTED CIRCUIT BOARD PREASSEMBLER - 03/25/2025 2:00 PM [employer]INTED [employer] BOARD PREASSEMBLER Surgery [facility] [address] [place] [address] Trey Man DPM REPAIR ACHILLES TENDON 03/25/2025 10:47 AM PRINTED CIRCUIT BOARD PREASSEMBLER - 03/25/2025 4:54 PM PRINTED CIRCUIT BOARD PREASSEMBLER Hospital Encounter [facility] [address] [place] [address] Trey Man DPM Achilles tendon rupture, left, initial encounter (Primary Dx) Discharge Disposition: Home Self Care 03/25/2025 Travel 03/22/2025 3:00 PM PRINTED CIRCUIT BOARD PREASSEMBLER Office Visit [facility] [address] [place] [address] Celso Alvarez MD Pre-Op Exam (DOS 03/25/25 left achilles) 03/22/2025 11:15 AM PRINTED CIRCUIT BOARD PREASSEMBLER Office Visit [facility] [place] [address] [address] Trey Man DPM Consult (Left achilles tendon injury) 03/22/2025 Travel 03/21/2025 Telephone [facility] [place] [facility] [address] [place] [address] Trey Man DPM Appointment Request 03/19/2025 5:00 PM PRINTED CIRCUIT BOARD PREASSEMBLER - 03/19/2025 7:24 PM PRINTED CIRCUIT BOARD PREASSEMBLER Emergency [facility] [address] [place] [address] Navya Singh MD Rupture of left Achilles tendon, initial encounter (Primary Dx) Discharge Disposition: Home Self Care 03/19/2025 Travel 03/10/2025 3:00 PM PRINTED CIRCUIT BOARD PREASSEMBLER Telemedicine [facility] [address] [facility] [address] [place] [address] Kim Reinoso NP Telehealth 03/09/2025 Travel 02/22/2025 3:10 PM CDT Office Visit [facility] [address] [place] [address] Syed Young MD Blood In Stool (Blood in stool for 1 month ) 02/22/2025 Travel 12/31/2024 Lab Requisition [facility] [address] [place] [address] Yesika Tapia MBBS 12/28/2024 5:05 PM CDT Office Visit [facility] [address] [place] [address] Breana Flores NP Throat Pain/problem; Eye Problem (left) 12/28/2024 Travel from Last 3 Months Immunizations Immunization Administration Dates Next Due COVID-19 vaccine (LiquidM 30mcg/0.3mL) P F, MDV 09/12/2020,08/18/2020 DTaP 06/09/2008 [...] on file Legal Sex Male 5:23 AM PRINTED CIRCUIT BOARD PREASSEMBLER Gender Identity Not on file Sexual Orientation Not on file 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 Not on file Not on file Obstetrics History Last Filed Vital Signs Vital Sign Reading Time Taken Comments Blood Pressure 136/78 03/25/2025 4:30 PM PRINTED CIRCUIT BOARD PREASSEMBLER Pulse 76 03/25/2025 4:30 PM PRINTED CIRCUIT BOARD PREASSEMBLER Temperature 36 C (96.8 F) 03/25/2025 3:10 PM PRINTED CIRCUIT BOARD PREASSEMBLER Respiratory Rate 16 03/25/2025 4:30 PM PRINTED CIRCUIT BOARD PREASSEMBLER Oxygen Saturation 98% 03/25/2025 4:30 PM PRINTED CIRCUIT BOARD PREASSEMBLER Inhaled Oxygen Concentration - - Weight 106.8 kg (235 lb 8 oz) 03/25/2025 11:13 A M PRINTED CIRCUIT BOARD PREASSEMBLER Height 180.3 cm (5' 11) 03/25/2025 11:13 AM PRINTED CIRCUIT BOARD PREASSEMBLER Body Mass Index 32.85 03/25/2025 11:13 AM PRINTED CIRCUIT BOARD PREASSEMBLER Plan of Treatment Upcoming Encounters Date Type Department Care Team (Late st Contact Info) Description 04/05/2025 9:45 AM PRINTED CIRCUIT BOARD PREASSEMBLER Office Visit [facility] [address] [address] Trey Man DPM [address] [place] [address] 05/10/2025 8:45 AM PRINTED CIRCUIT BOARD PREASSEMBLER Office Visit [facility] [address] [place] [address] Trey Man DPM [address] [place] [address] Health Maintenance Due Date Last Done Comments [...] Completed 11/08/2023 Medical Devices Implanted Type Area Esthetician Facialist Device Identifier Shelf Expiration Date Model / Serial / Lot Implant System, Pars Achilles Mildsubstance Speedbridge With Jumpstart Dressing Implanted:Qty: 1 on 03/25/2025 by Trey Man DPM at [facility] Left: Ankle [employer] 10/02/2028 [id number] / / [id number] Procedures Procedure Name Priority Date/Time Associated Diagnosis Comments ENDOTRACHEAL TUBE Routine 03/25/2025 1:1 1 PM PRINTED CIRCUIT BOARD PREASSEMBLER PERIPHERAL BLOCK Routine 03/25/2025 12:3 0 PM PRINTED CIRCUIT BOARD PREASSEMBLER BEDSIDE US STUDY ARCHIVE Routine 03/25/2025 11:54 AM PRINTED CIRCUIT BOARD PREASSEMBLER BEDSIDE US STUDY ARCHIVE Preop 03/25/2025 10:52 AM PRINTED CIRCUIT BOARD PREASSEMBLER CBC WITH AUTO DIFFERENTIAL Routine 03/22/2025 12:27 PM PRINTED CIRCUIT BOARD PREASSEMBLER Preop examination COMP METABOLIC PANEL Routine 03/22/2025 12:27 PM PRINTED CIRCUIT BOARD PREASSEMBLER Preop examination CBC WITH AUTO DIFFERENTIAL Routine 03/22/2025 12:27 PM PRINTED CIRCUIT BOARD PREASSEMBLER Preop examination XR ANKLE 3 VIEWS LEFT STAT 03/19/2025 5:33 PM PRINTED CIRCUIT BOARD PREASSEMBLER LIPID PANEL W REFLEX MEASURED LDL Routine [...] Maintenance Results * ETT (03/25/2025 1:11 PM PRINTED CIRCUIT BOARD PREASSEMBLER) Narrative Reema Yanez CRNA Student - 03/25/2025 1:11 PM PRINTED CIRCUIT BOARD PREASSEMBLER Reema Yanez CRNA Student 03/25/2025 1:21 PM [...] teeth Difficulty: 0 (not difficult) Michelle Roger DRAWING KILN SUPERVISOR ANESTHESIA PX NOTE ORDER ALISHA Edited Result - Final * Peripheral Block (03/25/2025 12:30 PM PRINTED CIRCUIT BOARD PREASSEMBLER) Reema Harmon CRNA Student - 03/25/2025 12:30 PM PRINTED CIRCUIT BOARD PREASSEMBLER Reema Yanez CRNA Student 03/25/2025 1:21 PM [...] stimulator. Events: no complications. us Michelle Roger DRAWING KILN SUPERVISOR ANESTHESIA PX NOTE ORDER ALISHA Edited Result - Final * (ABNORMAL) CBC WITH AUTO DIFFERENTIAL (03/22/2025 12:27 PM PRINTED CIRCUIT BOARD PREASSEMBLER) Only the most recent of2 resultswithin the time period is included. WHITE BLOOD CELL COUNT 8.9 3.8 - 10.8 Thousand/u L 03/23/2025 3:43 AM PRINTED CIRCUIT BOARD PREASSEMBLER [facility] RED BLOOD CELL COUNT 4.49 4.20 - 5.80 Million/uL 03/23/2025 3:43 AM PRINTED CIRCUIT BOARD PREASSEMBLER [facility] HEMOGLOBIN 14.3 13.2 - 17.1 g/dL 03/23/2025 3:43 AM PRINTED CIRCUIT BOARD PREASSEMBLER [facility] HEMATOCRIT 42.1 38.5 - 50.0 % 03/23/2025 3:43 AM PRINTED CIRCUIT BOARD PREASSEMBLER [facility] MCV 93.8 80.0 - 100.0 fL 03/23/2025 3:43 AM PRINTED CIRCUIT BOARD PREASSEMBLER [facility] MCH 31.8 27.0 - 33.0 pg 03/23/2025 3:43 AM PRINTED CIRCUIT BOARD PREASSEMBLER [facility] MCHC 34.0 32.0 - 36.0 g/dL 03/23/2025 3:43 AM PRINTED CIRCUIT BOARD PREASSEMBLER [facility] Comment: For adults, a slight decrease in the calculated MCHC value (in the range of 30 to 32 g/dL) is most likely not clinically significant; however, it should be interpreted with caution in correlation with other red cell parameters and the patient's clinical condition. RDW 12.5 11.0 - 15.0 % 03/23/2025 3:43 AM PRINTED CIRCUIT BOARD PREASSEMBLER [facility] PLATELET COUNT 231 140 - 400 Thousand/u L 03/23/2025 3:43 AM PRINTED CIRCUIT BOARD PREASSEMBLER [facility] MPV 9.9 7.5 - 12.5 fL 03/23/2025 3:43 AM PRINTED CIRCUIT BOARD PREASSEMBLER [facility] NEUTROPHILS 60.9 % 03/23/2025 3:43 AM PRINTED CIRCUIT BOARD PREASSEMBLER [facility] LYMPHOCYTES 25.6 % 03/23/2025 3:43 AM PRINTED CIRCUIT BOARD PREASSEMBLER [facility] MONOCYTES 6.8 % 03/23/2025 3:43 AM PRINTED CIRCUIT BOARD PREASSEMBLER [facility] EOSINOPHILS 6.2 % 03/23/2025 3:43 AM PRINTED CIRCUIT BOARD PREASSEMBLER [facility] BASOPHILS 0.5 % 03/23/2025 3:43 AM PRINTED CIRCUIT BOARD PREASSEMBLER [facility] ABSOLUTE NEUTROPHILS 5420 1500 - 7800 cells/uL 03/23/2025 3:43 AM PRINTED CIRCUIT BOARD PREASSEMBLER [facility] ABSOLUTE LYMPHOCYTES 2278 850 - 3900 cells/uL 03/23/2025 3:43 AM PRINTED CIRCUIT BOARD PREASSEMBLER [facility] ABSOLUTE MONOCYTES 605 200 - 950 cells/uL 03/23/2025 3:43 AM PRINTED CIRCUIT BOARD PREASSEMBLER [facility] ABSOLUTE EOSINOPHILS 552(H) 15 - 500 cells/uL 03/23/2025 3:43 AM PRINTED CIRCUIT BOARD PREASSEMBLER [facility] ABSOLUTE BASOPHILS 45 0 - 200 cells/uL 03/23/2025 3:43 AM PRINTED CIRCUIT BOARD PREASSEMBLER [facility] Blood BLOOD SPECIMEN / Unknown [facility] / Unknown 03/22/2025 12:27 PM PRINTED CIRCUIT BOARD PREASSEMBLER 03/22/2025 12:27 PM PRINTED CIRCUIT BOARD PREASSEMBLER us Celso Alvarez MD HEMATOLOGY Final Res ult [facility] [address] [place] [address], * (ABNORMAL) COMP METABOLIC PANEL (03/22/2025 12:27 PM PRINTED CIRCUIT BOARD PREASSEMBLER) Only the most recent of2 resultswithin the time period is included. SODIUM 140 135 - 146 mmol/L 03/23/2025 6:16 AM PRINTED CIRCUIT BOARD PREASSEMBLER [facility] POTASSIUM 4.3 3.5 - 5.3 mmol/L 03/23/2025 6:16 AM PRINTED CIRCUIT BOARD PREASSEMBLER [facility] CHLORIDE 104 98 - 110 mmol/L 03/23/2025 6:16 AM PRINTED CIRCUIT BOARD PREASSEMBLER [facility] CARBON DIOXIDE 26 20 - 32 mmol/L 03/23/2025 6:16 AM PRINTED CIRCUIT BOARD PREASSEMBLER [facility] GLUCOSE 101(H) 65 - 99 mg/dL 03/23/2025 6:16 AM PRINTED CIRCUIT BOARD PREASSEMBLER [facility] Comment: Fasting reference interval For someone without known diabetes, a glucose value between 100 and 125 mg/dL is consistent with prediabetes and should be confirmed with a follow-up test. CALCIUM 9.2 8.6 - 10.3 mg/dL 03/23/2025 6:16 AM PRINTED CIRCUIT BOARD PREASSEMBLER [facility] CREATININE 1.31(H) 0.60 - 1.29 mg/dL 03/23/2025 6:16 AM PRINTED CIRCUIT BOARD PREASSEMBLER [facility] BUN/CREATININE RATIO 10 6 - 22 (calc) 03/23/2025 6:16 AM PRINTED CIRCUIT BOARD PREASSEMBLER [facility] EGFR 70 > OR = 60 mL/min/1. 73m2 03/23/2025 6:16 AM PRINTED CIRCUIT BOARD PREASSEMBLER [facility] ALBUMIN 4.6 3.6 - 5.1 g/dL 03/23/2025 6:16 AM PRINTED CIRCUIT BOARD PREASSEMBLER [facility] PROTEIN, TOTAL 7.1 6.1 - 8.1 g/dL 03/23/2025 6:16 AM PRINTED CIRCUIT BOARD PREASSEMBLER [facility] BILIRUBIN, TOTAL 0.6 0.2 - 1.2 mg/dL 03/23/2025 6:16 AM PRINTED CIRCUIT BOARD PREASSEMBLER [facility] ALKALINE PHOSPHATASE 64 36 - 130 U/L 03/23/2025 6:16 AM PRINTED CIRCUIT BOARD PREASSEMBLER [facility] ALT 32 9 - 46 U/L 03/23/2025 6:16 AM PRINTED CIRCUIT BOARD PREASSEMBLER [facility] AST 29 10 - 40 U/L 03/23/2025 6:16 AM PRINTED CIRCUIT BOARD PREASSEMBLER [facility] UREA NITROGEN (BUN) 13 7 - 25 mg/dL 03/23/2025 6:16 AM PRINTED CIRCUIT BOARD PREASSEMBLER [facility] GLOBULIN 2.5 1.9 - 3.7 g/dL (calc) 03/23/2025 6:16 AM PRINTED CIRCUIT BOARD PREASSEMBLER [facility] ALBUMIN/GLOBULIN RATIO 1.8 1.0 - 2.5 (calc) 03/23/2025 6:16 AM PRINTED CIRCUIT BOARD PREASSEMBLER [facility] Blood BLOOD SPECIMEN / Unknown [facility] / Unknown 03/22/2025 12:27 PM PRINTED CIRCUIT BOARD PREASSEMBLER 03/22/2025 12:27 PM PRINTED CIRCUIT BOARD PREASSEMBLER us Celso Alvarez MD CHEMISTRY Final Res ult [facility] [address] [place] [address], * XR ANKLE 3 VIEWS LEFT (03/19/2025 5:33 PM PRINTED CIRCUIT BOARD PREASSEMBLER) Anatomical Region Laterality Modality ANKLES, ANKLE L Digital Radiogra phy 03/19/2025 5:45 PM PRINTED CIRCUIT BOARD PREASSEMBLER Impressions 03/19/2025 5:45 PM PRINTED CIRCUIT BOARD PREASSEMBLER 1. On the lateral view, there is a linear lucency overlying either the medial or lateral malleoli. Correlation with physical exam for focal tenderness in this region is recommended to exclude an acute fracture. Dictated by Mckay Ca MD @ 03/19/2025 5:45:06 PM Dictated by: Mckay Ca MD @ 03/19/2025 17:45:10 (Electronically Signed) Narrative 03/19/2025 5:45 PM PRINTED CIRCUIT BOARD PREASSEMBLER For Patients: As a result of the [...] 91 <200 mg/dL 02/23/2025 3:33 AM CDT [facility] TRIGLYCERIDES 57 <150 mg/dL 02/23/2025 3:33 AM CDT [facility] HDL CHOLESTEROL 40 > OR = 40 mg/dL 02/23/2025 3:33 AM CDT [facility] NON HDL CHOLESTEROL 51 <130 mg/dL (calc) 02/23/2025 3:33 AM CDT [facility] Comment: For patients with diabetes plus 1 major ASCVD risk factor, treating to a non-HDL-C goal of <100 mg/dL (LDL-C of <70 mg/dL) is considered a therapeutic option. CHOL/HDLC RATIO 2.3 <5.0 (calc) 02/23/2025 3:33 AM CDT [facility] LDL-CHOLESTEROL 38 mg/dL (calc) 02/23/2025 3:33 AM CDT [facility] Comment: Reference range: <100 Desirable range <100 mg/dL for primary prevention; <70 mg/dL for patients with CHD or diabetic patients with > or = 2 CHD risk factors. LDL-C is now calculated using the Kb-Wally calculation, which is a validated novel method providing better accuracy than the Friedewald equation in the estimation of LDL-C. Kb SS et al. ELAN. 2013;310(19): 4579-6052 (http://education.Geostellar.Hashtago/faq/QSM103) Blood BLOOD SPECIMEN / Unknown [facility] / Unknown 02/22/2025 3:52 PM CDT 02/22/2025 3:52 PM CDT us Syed Young MD CHEMISTRY Final Resul t [facility] [place] [address], * (ABNORMAL) BCR ABL1 CML/ALL PCR QUANT (12/31/2024 3:10 PM CDT) [facility] BCR-ABL1, CML/ALL, PCR, Quant Note(A) 01/07/2025 2:09 PM CDT [facility] ([facility]) Comment: TESTS RESULT FLAG UNITS REF RANGE LAB e13a2 (b2a2) ca... Note [A] % 01 <0.0032 e14a2 (b3a2) ca... 0.0232 % 01 e1a2 transcript Note % 01 <0.0032 Interpretation: Positive [A] 01 POSITIVE for the BCR-ABL1 e14a2 (b3a2, p210) fusion transcript. Director Review Note 01 Technical Component performed at [facility] RT Professional Component performed by: Saba Ta, PhD, FACMG Director, Molecular Oncology [facility] [place] [id number], [address] [address] Background 01 This assay can detect three [...] developed and its performance characteristics determined by [facility]. It has not been cleared or approved [...] quantitation of BCR-ABL mRNA. Blood. 2010 25; 116(22):[id number]. PDF 02 FLAG LEGEND: L-Low Normal,H-High Normal,LL-Alert Low,HH-Alert High <-Panic Low,>-Panic High,A-Abnormal,AA-Critical Abnormal Performed at: 01 SIN [facility] [place] [address] [facility], [place] [address] Yoel Desouza [facility], 02 [address] [facility] [place] [address], [place] [address] Yoel Desouza [facility], Other BLOOD SPECIMEN / Unknown [facility]fly / Unknown 12/31/2024 3:10 PM CDT 12/31/2024 3:[address] [facility] ([facility]) - 01/07/2025 2:09 PM CDT Performed at: 01 - [facility] [address] [place], [place] [id number] Scarfing Machine Operator: Yoel Desouza [facility], Phone: [phone] Yesika STEVENS SEND OUTS Final Result [facility] ([facility]) [address] [place] [address], * RED CELL MORPHOLOGY (12/31/2024 3:10 PM CDT) RBC COMMENT RBC morphology appears normal RBC morphology appears normal, RBC morphology within normal limits for newborns. 12/31/2024 4:07 PM CDT [facility] Blood BLOOD SPECIMEN / Unknown Butterfly / Unknown 12/31/2024 3:10 PM CDT 12/31/2024 3:19 PM CDT Yesika STEVENS HEMATOLOGY Final Result [facility] [address] [place] [address] * PLATELET ESTIMATE (12/31/2024 3:10 PM CDT) PLATELET ESTIMATE Adequate Adequate, No estimate 12/31/2024 4:07 PM CDT [facility] Blood BLOOD SPECIMEN / Unknown Butterfly / Unknown 12/31/2024 3:10 PM CDT 12/31/2024 3:19 PM CDT Yesika STEVENS HEMATOLOGY Final Result [facility] [address] [place] [address] * (ABNORMAL) MANUAL DIFFERENTIAL (12/31/2024 3:10 PM CDT) [facility] % NEUTROPHILS 41.0 % 12/31/2024 4:07 PM CDT [facility] % LYMPHOCYTES 36.0 % 12/31/2024 4:07 PM CDT [facility] % MONOCYTES 9.0 % 12/31/2024 4:07 PM CDT [facility] % EOSINOPHILS 12.0 % 12/31/2024 4:07 PM CDT [facility] % BASOPHILS 2.0 % 12/31/2024 4:07 PM CDT [facility] NEUTROPHILS ABSOLUTE 2.7 1.7 - 7.0 thou/cu mm 12/31/2024 4:07 PM CDT [facility] LYMPHOCYTES ABSOLUTE 2.4 0.9 - 2.9 thou/cu mm 12/31/2024 4:07 PM CDT [facility] MONOCYTES ABSOLUTE 0.6 <0.9 thou/cu mm 12/31/2024 4:07 PM CDT [facility] EOSINOPHILS ABSOLUTE 0.8(H) <0.5 thou/cu mm 12/31/2024 4:07 PM CDT [facility] BASOPHILS ABSOLUTE 0.1 <0.3 thou/cu mm 12/31/2024 4:07 PM CDT [facility] Blood BLOOD SPECIMEN / Unknown Butterfly / Unknown 12/31/2024 3:10 PM CDT 12/31/2024 3:19 PM CDT Yesika STEVENS HEMATOLOGY Final Result [facility] [address] [place] [address] * COVID-19 MOLECULAR (12/28/2024 5:31 PM CDT) [facility] COVID 19 ALLINA MOLECULAR Negative Negative 12/29/2024 1:24 AM CDT [facility] 12/29/2024 1:24 AM CDT [facility] Comment:Specimen submitted t o [facility] for testing. Other SPECIMEN FROM NASAL FOSSAE / Unknown Non-Blood / Unknown 12/28/2024 5:31 PM CDT 12/28/2024 5:43 PM CDT Narrative [facility] - 12/29/2024 1:24 AM CDT All PCR tests are subject to false negative result due to variability in viral load and collection technique. A negative result does not rule out a SARS-CoV-2 infection. Clinical correlation required. us Tracy Quan NP MICROBIOLOGY Final Result Performing Organization Address City/[facility]/ZIP Co de Phone Number [facility] [address] [address], [place] * STREP A PCR (12/28/2024 5:31 PM CDT) GROUP A STREP Negative 12/29/2024 4:27 PM CDT [facility] Throat SPECIMEN FROM THROAT / Unknown Non-Blood / Unknown 12/28/2024 5:31 PM CDT 12/28/2024 5:55 PM CDT us Tracy Quan NP MICROBIOLOGY Final Result Performing Organization Address City/[facility]/ZIP Co de Phone Number [facility] [address] [address], [place] * THROAT RAPID STREP A WITH REFLEX (12/28/2024 5:31 PM CDT) STREP A ANTIGEN Negative 12/28/2024 5:55 PM CDT [facility] Comment:PCR to follow. Throat SPECIMEN FROM THROAT / Unknown Non-Blood / Unknown 12/28/2024 5:31 PM CDT 12/28/2024 5:43 PM CDT us Tracy Quan NP MICROBIOLOGY Final Result Performing Organization Address [facility] Co de Phone Number [facility] [address] [place] [address] * Anti-hepatitis C AM (11/08/2023 7:44 AM CDT) HEPATITIS C ANTIBODY Non-Reacti ve Non-React eddie 11/08/2023 9:14 AM CDT [facility] Comment:Please note, per www .CDC.gov: [...] SEND OUTS Final Result Performing Organization Address [facility] Co de Phone Number [facility] [address] * HIV 1&2 TODAY (11/07/2023 10:27 PM CDT) Pathologist [facility] HIV-1/HIV-2 SCREEN Non-Reacti ve Non-Reacti ve 11/07/2023 11:16 PM CDT [facility] Comment:HIV-1 p24 and HIV-1/ HIV-2 Ab Not Detected. Blood BLOOD SPECIMEN / Unknown Butterfly / Unknown 11/07/2023 10:27 PM CDT 11/07/2023 10:32 PM CDT us Luis F Duarte MD SEND OUTS Final Result Performing Organization Address City/[facility]/ZIP Co de Phone Number [facility] [address] [place] [address], from Last 3 Months or Most Recently Relevant to Health Maintenance Insurance [facility] [address] [place] [id number] [place] [id number] [place] [id number] [employer] WORKERS COMP on file Advance Directives [...] 5:30 AM 10/30/2015 10:35 AM Care Teams Personal Lines Agent Relationship Specialty Start Date End Date Syed Young MD [address] [place] [address] PCP - General Family Practice 11/03/15
--- OUTSIDE RECORDS SUMMARY | 2025-03-28 00:58 | XMS_ITS | Clinical Summary ---
Author Organization [facility] Address [address] [place] [address]. 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
[2025-03-28 01:13] LABS: PCR FLU A Negative PCR FLU A (Negative); PCR FLU B Negative PCR FLU B (Negative); PCR RSV Negative PCR RSV (Negative); SARS PCR* Negative SARS-CoV-2 (Negative)
== END 2025-03-28 01:29 | disposition home or self-care (01) ==
PROVIDERS: Emergency Provider Family Medicine; PCP Family Medicine
DX: G89.18 Other acute postprocedural pain (principal); Z46.89 Encounter for fitting and adjustment of other specified devices; T50.905A Adverse effect of unspecified drugs, medicaments and biological substances, initial encounter
CPT/HCPCS: 36415; 80048; 83605; 85025; 86140; 87631; 99283; 99284; A9270